=== PATIENT | female | born 1980 | race Caucasian/White ===

== ENCOUNTER 2020-10-28 22:14 | Emergency (ER) | payer BC, OTHER ==
[~2020-10-28] VITALS: Ht 167.6 cm; Wt 59.0 kg
[2020-10-28] MEDS ORDERED: ULTRAM 50MG TAB50 MG PO ×2 (23:49→23:53)
[2020-10-29 00:19] VITALS: BP 137/87
== END 2020-10-29 00:20 | disposition home or self-care (01) ==
LOC: ER 22:14
DX: S91.311A Laceration without foreign body, right foot, initial encounter (principal); I10 Essential (primary) hypertension; G43.909 Migraine, unspecified, not intractable, without status migrainosus; W08.XXXA Fall from other furniture, initial encounter; Y93.89 Activity, other specified; Y92.89 Other specified places as the place of occurrence of the external cause; Y99.8 Other external cause status